=== PATIENT | female | born 1990 | race Caucasian/White ===

== ENCOUNTER 2018-12-25 12:49 | Day surgery (SDC) | payer OTHER ==
[2018-12-25] MEDS ORDERED: MIDAZOLAM 1 MG/ML 2 ML INJ ×3 (16:18→16:19)
[2018-12-25] MEDS ORDERED: FENTAnyl 50 MCG/ML VIAL (16:18)
== END 2018-12-25 16:51 | disposition home or self-care (01) ==
LOC: GIL 12:49
DX: K21.0 Gastro-esophageal reflux disease with esophagitis (principal); K64.8 Other hemorrhoids; K29.00 Acute gastritis without bleeding
CPT/HCPCS: 43239; 84703; 88305; 88312; 88313